=== PATIENT | male | born 1935 | race Caucasian/White ===

== ENCOUNTER → 2017-03-07 | Outpatient (CLI) | payer MEDICARE, OTHER | LOC: GMAL 11:35 | PROVIDERS: ATTEND Family Medicine | DX: D51.3 Other dietary vitamin B12 deficiency anemia (principal); R53.82 Chronic fatigue, unspecified; E55.9 Vitamin D deficiency, unspecified ==

== ENCOUNTER → 2017-03-14 | Outpatient (CLI) | payer MEDICARE, OTHER | LOC: GMAL 12:05 | PROVIDERS: ATTEND Family Medicine | DX: R53.82 Chronic fatigue, unspecified (principal); E55.9 Vitamin D deficiency, unspecified ==

== ENCOUNTER → 2017-04-16 | Outpatient (CLI) | payer MEDICARE, OTHER | LOC: GMAL 14:36 | PROVIDERS: ATTEND Family Medicine | DX: Z12.5 Encounter for screening for malignant neoplasm of prostate (principal) ==

== ENCOUNTER 2017-06-03 14:02 | Emergency (ER) | payer MEDICARE, OTHER ==
[2017-06-03 14:28] VITALS: TEMP 97.9
--- NOTE | 2017-06-03 14:42 | ED.PDOC ---
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 A few hours while in ER stated pain is almost gone. Occurred: just prior to arrival Pain - Lower Extremity: moderate: Right Thigh/Hip Method of Injury: twisted Improving Factors: nothing Worsening Factors: nothing Associated Symptoms: pain Allergies/Adverse Reactions: Allergies Morphine Allergy (Severe, Verified 03/27/15 12:27) Home Medications: Ambulatory Orders Aspirin [Aspirin Childrens] 81 mg PO DAILY 03/27/15 Atenolol [Tenormin] 25 mg PO BID 03/27/15 BuPROPion XL [Wellbutrin XL] 150 mg PO BEDTIME 03/27/15 Citalopram Hydrobromide 40 mg PO DAILY 03/27/15 Cyclobenzaprine HCl 10 mg PO BEDTIME 03/27/15 Finasteride 5 mg PO DAILY 03/27/15 Flaxseed (Linseed) [Flax Seed Oil 1000 mg] 1 cap PO DAILY 03/27/15 Furosemide [Lasix] 20 mg PO DAILY 03/27/15 Lovastatin 10 mg PO DAILY 03/27/15 Omeprazole 40 mg PO DAILY@0700 03/27/15 Potassium Chloride [Potassium Chloride ER] 8 meq PO BEDTIME 03/27/15 Terazosin [Hytrin] 5 mg PO BID 03/27/15 Vitamin A 25,000 unit PO DAILY 03/27/15 Vitamin E 100 unit PO DAILY 03/27/15 diltiaZEM HCL CD [Cardizem Cd] 120 mg PO QD 03/27/15 traZODone HCL [Desyrel] 50 mg PO BEDTIME 03/27/15 Azithromycin Tab [Zithromax Tab] 500 mg PO Q24H #3 tab 03/29/15 Ipratropium/Albuterol [Duoneb] 3 ml INH RTQID #30 vial 03/29/15 Review of Systems - Review of Systems Constitutional: States: no symptoms reported EENTM: States: no symptoms reported Respiratory: States: no symptoms reported Musculoskeletal: States: see HPI Skin: States: no symptoms reported Neurological: States: no symptoms reported Past Medical History (General) - Patient Medical History Hx Stroke: No Hx Dementia: No Hx Asthma: No Hx of COPD: No Hx Congestive Heart Failure: No Hx Hypertension: Yes Hx Diabetes: No - borderline Hx Gastroesophageal Reflux: Yes Hx Cancer: No Hx MRSA: No Surgical History: other - bilateral hip replacement - Vaccination History Hx Tetanus, Diphtheria Vaccination: - unknown Hx Influenza Vaccination: Yes Hx Pneumococcal Vaccination: Yes - Social History Hx Tobacco Use: Yes Hx Alcohol Use: No Hx Substance Use: No Hx Substance Use Treatment: No Hx Depression: No Hx Physical Abuse: No Hx Emotional Abuse: No - Activities of Daily Living Grooming Ability: Independent Eating (Feeding) Ability: Independent Toileting Ability: Independent - Female History Patient : No Family Medical History - Family History Mother Living Status: Hx Family;Other: uti's Physical Exam - Physical Exam General Appearance: Alert, Comfortable, No apparent distress Eyes, Ears, Nose, Throat: normal ENT inspection Neck: full range of motion, supple Cardiovascular/Respiratory: regular rate, rhythm, normal peripheral pulses, no JVD, normal breath sounds Back: normal inspection, no CVA tenderness, no vertebral tenderness Thigh/Hip: normal inspection, non-tender, no evidence of injury, normal ROM Leg: normal inspection, non-tender, no evidence of injury, normal ROM Knee: normal inspection, non-tender, no evidence of injury Ankle: normal inspection, non-tender, no evidence of injury Foot: normal inspection, non-tender, no evidence of injury, normal ROM Neuro/Tendon: normal sensation, normal motor functions, normal tendon functions Mental Status: alert, oriented x 3 Skin: normal color, warm/dry Progress - EKG/XRAY/CT XRAY: lumbar -no acute abnormalities noted both hip prosttheses intact Departure - Departure Clinical Impression: Pain of right hip joint Strain of right hip Qualifiers: Encounter type: initial encounter Qualified Code(s): S76.011A - Strain of muscle, fascia and tendon of right hip, initial encounter Time of Disposition: 16:38 Disposition: Discharge to Home or Self Care Departure Forms: ED Discharge - Pt. Copy, Patient Portal Self Enrollment Instructions: Muscle Strain Referrals: Carlos Dawkins III, MD [Primary Care Provider] - 1-2 Weeks Home Medications: Ambulatory Orders Aspirin [Aspirin Childrens] 81 mg PO DAILY 03/27/15 Atenolol [Tenormin] 25 mg PO BID 03/27/15 BuPROPion XL [Wellbutrin XL] 150 mg PO BEDTIME 03/27/15 Citalopram Hydrobromide 40 mg PO DAILY 03/27/15 Cyclobenzaprine HCl 10 mg PO BEDTIME 03/27/15 Finasteride 5 mg PO DAILY 03/27/15 Flaxseed (Linseed) [Flax Seed Oil 1000 mg] 1 cap PO DAILY 03/27/15 Furosemide [Lasix] 20 mg PO DAILY 03/27/15 Lovastatin 10 mg PO DAILY 03/27/15 Omeprazole 40 mg PO DAILY@0700 03/27/15 Potassium Chloride [Potassium Chloride ER] 8 meq PO BEDTIME 03/27/15 Terazosin [Hytrin] 5 mg PO BID 03/27/15 Vitamin A 25,000 unit PO DAILY 03/27/15 Vitamin E 100 unit PO DAILY 03/27/15 diltiaZEM HCL CD [Cardizem Cd] 120 mg PO QD 03/27/15 traZODone HCL [Desyrel] 50 mg PO BEDTIME 03/27/15 Azithromycin Tab [Zithromax Tab] 500 mg PO Q24H #3 tab 03/29/15 Ipratropium/Albuterol [Duoneb] 3 ml INH RTQID #30 vial 03/29/15 Additional Instructions: Return to ER as needed;May take Aleve 1-2 tablets am/pm for pain as needed Ice pack to affected area 20 minutes 3 x a day as needed until better
--- NOTE | 2017-06-03 15:49 | RAD ---
EXAM DESCRIPTION: Hip,Right 2 Views CLINICAL HISTORY: pain COMPARISON: None IMPRESSION: 2 views of the right hip show noncemented bipolar total hip arthroplasty in good positioning without complicating features. No fracture or dislocation is identified. Distal aspect of the femoral component is not seen on the AP view. Electronically signed by: Baltazar Clark MD 06/03/2017 3:48 PM CDT
--- NOTE | 2017-06-03 15:51 | RAD ---
EXAM DESCRIPTION: Pelvis CLINICAL HISTORY: pain COMPARISON: CT abdomen and pelvis dated 15 November 2014 TECHNIQUE: AP pelvis FINDINGS: Bilateral total hip arthroplasty is observed. No evidence of fracturing or loosening is detected. No pelvic injury is detected. No worrisome calcifications are detected. Mild degenerative changes are observed in the lower lumbar spine. IMPRESSION: Bilateral total hip arthroplasty is observed. Exam is otherwise unremarkable. Electronically signed by: Carlos Glover MD 06/03/2017 3:50 PM CDT
--- NOTE | 2017-06-03 15:52 | RAD ---
EXAM DESCRIPTION: Lumbar Spine 3 Views CLINICAL HISTORY: 81 years Male, pain COMPARISON: None. FINDINGS: 3 views of the lumbar spine show vertebral body heights to be maintained. Mild L4-5 and severe L5-S1 disc space narrowing with L5-S1 vacuum disc is seen. Anterior disc osteophytic ridging is seen from L4 through S1 with moderate bilateral facet hypertrophic and degenerative changes at these levels. Alignment is unremarkable. Calcifications of the abdominal aorta without aneurysmal dilatation are seen. Osseous structures are diffusely osteopenic. 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 Electronically signed by: Baltazar Clark MD 06/03/2017 3:51 PM CDT
[2017-06-03 17:15] VITALS: BP 142/86; O2SAT 97
== END 2017-06-03 16:53 | disposition home or self-care (01) ==
LOC: ER 14:02
DX: S76.011A Strain of muscle, fascia and tendon of right hip, initial encounter (principal); I10 Essential (primary) hypertension; K21.9 Gastro-esophageal reflux disease without esophagitis; Z96.643 Presence of artificial hip joint, bilateral; Z79.82 Long term (current) use of aspirin; Z79.899 Other long term (current) drug therapy; Z88.6 Allergy status to analgesic agent; X58.XXXA Exposure to other specified factors, initial encounter; Y92.9 Unspecified place or not applicable

== ENCOUNTER → 2017-07-17 | Outpatient (CLI) | payer MEDICARE, OTHER | LOC: GMAL 10:15 | PROVIDERS: ATTEND Family Medicine | DX: D51.3 Other dietary vitamin B12 deficiency anemia (principal) ==

== ENCOUNTER 2018-07-18 12:04 | Emergency (ER) | payer MEDICARE, OTHER ==
[2018-07-18] MEDS ORDERED: LIDOCAINE 1% 10 ML VIAL INJ ONE (12:17)
[2018-07-18 12:22] VITALS: TEMP 97.7; O2SAT 97
[2018-07-18] MEDS ORDERED: AMOXICILLIN & POT CLAVULANATE 875 MG TAB PO ONE (12:26)
[2018-07-18] MEDS ORDERED: TETANUS,DIPHTHERIA,PERTUSSIS 1 EA SYG IM ONE (12:26)
--- NOTE | 2018-07-18 12:55 | ED.PDOC ---
History of Present Illness - General Chief Complaint: Laceration Stated Complaint: laceration Time Seen by Provider: 07/18/18 12:26 Source: patient Exam Limitations: no limitations - History of Present Illness Initial Comments: the patient is an 82-year-old male presenting to the emergency room secondary to lacerations to his lateral dorsal right hand. He has a three- quarter inch laceration between the fourth and fifth knuckles and a 1/2 inch laceration over the hyperthenar lateral edge. He is neurovascularly intact. No evidence of fracture. Range of motion is preserved. The laceration sustained from his dog. Apparently he accidentally ran over his dog with his vehicle and when he went to pick it up, the dog bit him as the dog was in significant pain. The dog is now . No unusual behavior in the animal prior and he reports that it has had shots. he did take the dog to thevet Timing/Duration: 1 hour Severity: moderate Improving Factors: nothing Worsening Factors: nothing Associated Symptoms: denies symptoms Allergies/Adverse Reactions: Allergies Morphine Allergy (Severe, Verified 07/18/18 12:24) Home Medications: Ambulatory Orders Aspirin [Aspirin Childrens] 81 mg PO DAILY 03/27/15 Atenolol [Tenormin] 25 mg PO BID 03/27/15 BuPROPion XL [Wellbutrin XL] 150 mg PO BEDTIME 03/27/15 Citalopram Hydrobromide 40 mg PO DAILY 03/27/15 Cyclobenzaprine HCl 10 mg PO BEDTIME 03/27/15 Finasteride 5 mg PO DAILY 03/27/15 Flaxseed (Linseed) [Flax Seed Oil 1000 mg] 1 cap PO DAILY 03/27/15 Furosemide [Lasix] 20 mg PO DAILY 03/27/15 Lovastatin 10 mg PO DAILY 03/27/15 Omeprazole 40 mg PO DAILY@0700 03/27/15 Potassium Chloride [Potassium Chloride ER] 8 meq PO BEDTIME 03/27/15 Terazosin [Hytrin] 5 mg PO BID 03/27/15 Vitamin A 25,000 unit PO DAILY 03/27/15 Vitamin E 100 unit PO DAILY 03/27/15 diltiaZEM HCL CD [Cardizem Cd] 120 mg PO QD 03/27/15 traZODone HCL [Desyrel] 50 mg PO BEDTIME 03/27/15 Azithromycin Tab [Zithromax Tab] 500 mg PO Q24H #3 tab 03/29/15 Ipratropium/Albuterol [Duoneb] 3 ml INH RTQID #30 vial 03/29/15 Amoxicillin & Pot Clavulanate [Augmentin Tab] 875 mg PO BID #14 tab 07/18/18 Review of Systems - Review of Systems Constitutional: States: no symptoms reported EENTM: States: no symptoms reported Respiratory: States: no symptoms reported Cardiology: States: no symptoms reported Gastrointestinal/Abdominal: States: no symptoms reported Genitourinary: States: no symptoms reported Musculoskeletal: States: no symptoms reported Skin: States: see HPI Neurological: States: no symptoms reported Endocrine: States: no symptoms reported All other Systems: No Change from Baseline Past Medical History (General) - Patient Medical History Hx Stroke: No Hx Dementia: No Hx Asthma: No Hx of COPD: No Hx Congestive Heart Failure: No Hx Hypertension: Yes Hx Diabetes: No - borderline Hx Gastroesophageal Reflux: Yes Hx Cancer: No Hx MRSA: No - Vaccination History Hx Tetanus, Diphtheria Vaccination: - unknown Hx Influenza Vaccination: Yes Hx Pneumococcal Vaccination: Yes - Social History Hx Tobacco Use: Yes Hx Alcohol Use: No Hx Substance Use: No Hx Substance Use Treatment: No Hx Depression: No Hx Physical Abuse: No Hx Emotional Abuse: No - Female History Patient : No Family Medical History - Family History Mother Living Status: Hx Family;Other: uti's Physical Exam - Physical Exam General Appearance: Alert, No apparent distress Eye Exam: bilateral normal Ears, Nose, Throat: hearing grossly normal Respiratory: no respiratory distress, no accessory muscle use Cardiovascular/Chest: normal peripheral pulses, no edema, other - regular rate Peripheral Pulses: radial,right: 2+, radial,left: 2+ Rectal Exam: deferred Back Exam: no CVA tenderness Extremity: normal range of motion, no calf tenderness, normal capillary refill Neurologic: crank hand II-XII nml as tested, alert, normal mood/affect, oriented x 3 Skin Exam: normal color - lacerations as per history of present illness Comments: Vital Signs - 8 hr 07/18/18 12:10 Temperature 97.7 F Pulse Rate [ 65 pulse ox] Respiratory 18 Rate Blood Pressure 152/88 [Left Arm] O2 Sat by Pulse 97 Oximetry Progress - Progress Progress: 07/18/18 12:56 the patient is an 82-year-old male presenting to the emergency room secondary tolacerations to his right hand. The wound was irrigated copiously with water. He was dosed with Augmentin here and will be continued on that for 7 days. He did receive a tetanus shot. After risk and benefits of repair were explained, the patient did agree to proceed. Lidocaine without epinephrine 4 cc were used for local anesthetic. A total of 6 sutures were used to close both wounds. 4-0 Ethilon was used. Sutures need to come out in 10 days. Monitor for any evidence of infection. ER warnings were given. Departure - Departure Clinical Impression: Accidental laceration Disposition: Discharge to Home or Self Care Condition: Fair Departure Forms: ED Discharge - Pt. Copy, Patient Portal Self Enrollment Instructions: DI for Laceration Repair, DI for Laceration Repair -- Simple Diet: regular diet Activity: increase activity as tolerated Referrals: Carlos Dawkins III, MD [Primary Care Provider] - 1-2 Weeks Prescriptions: Amoxicillin & Pot Clavulanate [Augmentin Tab] 875 mg PO BID #14 tab Home Medications: Ambulatory Orders Aspirin [Aspirin Childrens] 81 mg PO DAILY 03/27/15 Atenolol [Tenormin] 25 mg PO BID 03/27/15 BuPROPion XL [Wellbutrin XL] 150 mg PO BEDTIME 03/27/15 Citalopram Hydrobromide 40 mg PO DAILY 03/27/15 Cyclobenzaprine HCl 10 mg PO BEDTIME 03/27/15 Finasteride 5 mg PO DAILY 03/27/15 Flaxseed (Linseed) [Flax Seed Oil 1000 mg] 1 cap PO DAILY 03/27/15 Furosemide [Lasix] 20 mg PO DAILY 03/27/15 Lovastatin 10 mg PO DAILY 03/27/15 Omeprazole 40 mg PO DAILY@0700 03/27/15 Potassium Chloride [Potassium Chloride ER] 8 meq PO BEDTIME 03/27/15 Terazosin [Hytrin] 5 mg PO BID 03/27/15 Vitamin A 25,000 unit PO DAILY 03/27/15 Vitamin E 100 unit PO DAILY 03/27/15 diltiaZEM HCL CD [Cardizem Cd] 120 mg PO QD 03/27/15 traZODone HCL [Desyrel] 50 mg PO BEDTIME 03/27/15 Azithromycin Tab [Zithromax Tab] 500 mg PO Q24H #3 tab 03/29/15 Ipratropium/Albuterol [Duoneb] 3 ml INH RTQID #30 vial 03/29/15 Amoxicillin & Pot Clavulanate [Augmentin Tab] 875 mg PO BID #14 tab 07/18/18 Additional Instructions: the patient is an 82-year-old male presenting to the emergency room secondary tolacerations to his right hand. The wound was irrigated copiously with water. He was dosed with Augmentin here and will be continued on that for 7 days. He did receive a tetanus shot. After risk and benefits of repair were explained, the patient did agree to proceed. Lidocaine without epinephrine 4 cc were used for local anesthetic. A total of 6 sutures were used to close both wounds. 4-0 Ethilon was used. Sutures need to come out in 10 days. Monitor for any evidence of infection. ER warnings were given.
[2018-07-18 14:19] VITALS: BP 174/96
== END 2018-07-18 13:10 | disposition home or self-care (01) ==
LOC: ER 12:04
DX: S61.451A Open bite of right hand, initial encounter (principal); I10 Essential (primary) hypertension; R73.03 Prediabetes; K21.9 Gastro-esophageal reflux disease without esophagitis; Z87.891 Personal history of nicotine dependence; Z79.899 Other long term (current) drug therapy; Z79.82 Long term (current) use of aspirin; Z88.5 Allergy status to narcotic agent; W54.0XXA Bitten by dog, initial encounter; Y92.9 Unspecified place or not applicable

== ENCOUNTER → 2018-12-02 | Outpatient (CLI) | payer MEDICARE, OTHER | LOC: GMAL 12:11 | PROVIDERS: ATTEND Family Medicine | DX: D51.3 Other dietary vitamin B12 deficiency anemia (principal); R53.82 Chronic fatigue, unspecified; E55.9 Vitamin D deficiency, unspecified; E78.2 Mixed hyperlipidemia; I10 Essential (primary) hypertension ==

== ENCOUNTER → 2019-11-30 | Outpatient (CLI) | payer MEDICARE, OTHER | LOC: GMAL 10:46 | PROVIDERS: ATTEND Family Medicine | DX: D51.3 Other dietary vitamin B12 deficiency anemia (principal); R53.82 Chronic fatigue, unspecified; E55.9 Vitamin D deficiency, unspecified; I10 Essential (primary) hypertension; E78.2 Mixed hyperlipidemia ==

== ENCOUNTER 2020-03-15 18:06 | Emergency (ER) | payer MEDICARE, OTHER ==
[2020-03-15] MEDS ORDERED: HYDROmorphone HCL INJ 2 MG/ML VIAL IM ONE (18:45)
--- NOTE | 2020-03-15 19:38 | RAD ---
EXAM DESCRIPTION: Femur,Right CLINICAL HISTORY: 84 years, Male, fall wiht suspected dislocation COMPARISON: None. FINDINGS: 2 X-ray views of the Right femur were performed. There is status post noncemented total right hip hypoplastic with at this location of the femoral prosthesis in relation to the acetabular prosthesis. There is foreshortening of the distal fragment site. There is minimal early vascular opacification of the femoral vessels There are no retained opaque foreign bodies. Grossly the knee joint demonstrate to be within normal limits. IMPRESSION: FEMORAL PROSTHESIS DISLOCATION OF THE TOTAL HIP ARTHROPLASTY. Electronically signed by: Carlos Sanchez MD 03/15/2020 7:37 PM [facility]
--- NOTE | 2020-03-15 19:41 | RAD ---
EXAM DESCRIPTION: Pelvis 03/15/2020 7:40 PM RESOURCING CONSULTANT CLINICAL HISTORY: 84 years, Male, fall wiht suspected dislocation COMPARISON: 06/03/2017 FINDINGS: 3 views of the (frontal view of the pelvis, frontal view of the right hip and frogleg view of the right hip) were obtained. There is mild diffuse bony osteopenia. There is status post total right hip arthroplasty with a posterior dislocation of the femoral component of the right hip arthroplasty. No definitive areas of acute bony injuries. The pelvic brim is intact. There is status post total left hip are the plasty. No gross soft tissue abnormality is identified. There are no gross intraosseous lesions. No periosteal reaction were seen. The pelvic brim is intact. Visualized gas pattern is nondiagnostic. IMPRESSION: DISLOCATION FEMORAL COMPONENT OF A TOTAL RIGHT HIP ARTHROPLASTY. STATUS POST TOTAL LEFT HIP ARTHROPLASTY. Electronically signed by: Carlos Sanchez MD 03/15/2020 7:40 PM RESOURCING CONSULTANT
--- NOTE | 2020-03-15 19:41 | RAD ---
EXAM DESCRIPTION: Hip,Right 2 Views 03/15/2020 7:37 PM [employer] [employer] CLINICAL HISTORY: 84 years, Male, fall wiht suspected dislocation COMPARISON: 06/03/2017 FINDINGS: 3 views of the (frontal view of the pelvis, frontal view of the right hip and frogleg view of the right hip) were obtained. There is mild diffuse bony osteopenia. There is status post total right hip arthroplasty with a posterior dislocation of the femoral component of the right hip arthroplasty. No definitive areas of acute bony injuries. The pelvic brim is intact. There is status post total left hip are the plasty. No gross soft tissue abnormality is identified. There are no gross intraosseous lesions. No periosteal reaction were seen. The pelvic brim is intact. Visualized gas pattern is nondiagnostic. IMPRESSION: DISLOCATION FEMORAL COMPONENT OF A TOTAL RIGHT HIP ARTHROPLASTY. STATUS POST TOTAL LEFT HIP ARTHROPLASTY. Electronically signed by: Carlos Sanchez MD 03/15/2020 7:39 PM [employer]
[2020-03-15] MEDS ORDERED: HYDROmorphone HCL INJ 2 MG/ML VIAL IV ONE (19:54)
[2020-03-15] MEDS ORDERED: ETOMIDATE INJECTION 2 MG/ML 20ML VIAL IV ONE (20:48)
[2020-03-15] MEDS ORDERED: SODIUM CHLORIDE 0.9% 1000ML 1,000 ML ONE (20:56)
--- NOTE | 2020-03-15 21:14 | ED.PDOC ---
History of Present Illness - General Chief Complaint: Lower Extremity Injury Stated Complaint: right hip pain Time Seen by Provider: 03/15/20 18:08 Source: patient Exam Limitations: no limitations - History of Present Illness Initial Comments: The patient is a 84-year-old male presented emergency room secondary to right hip pain. The patient tripped and fell down into a pit.. The patient has had a history of previous dislocations of the right hip. He has also had the right hip replaced. No other significant injuries. He is pleasant and cooperative. Timing/Duration: 1/2 hour Severity: severe Improving Factors: immobilization Worsening Factors: movement Associated Symptoms: denies symptoms Allergies/Adverse Reactions: Allergies Morphine Allergy (Severe, Verified 07/18/18 12:24) Home Medications: Ambulatory Orders Aspirin [Aspirin Childrens] 81 mg PO DAILY 03/27/15 Atenolol [Tenormin] 25 mg PO BID 03/27/15 BuPROPion XL [Wellbutrin XL] 150 mg PO BEDTIME 03/27/15 Citalopram Hydrobromide 40 mg PO DAILY 03/27/15 Cyclobenzaprine HCl 10 mg PO BEDTIME 03/27/15 Finasteride 5 mg PO DAILY 03/27/15 Flaxseed (Linseed) [Flax Seed Oil 1000 mg] 1 cap PO DAILY 03/27/15 Furosemide [Lasix] 20 mg PO DAILY 03/27/15 Lovastatin 10 mg PO DAILY 03/27/15 Omeprazole 40 mg PO DAILY@0700 03/27/15 Potassium Chloride [Potassium Chloride ER] 8 meq PO BEDTIME 03/27/15 Terazosin [Hytrin] 5 mg PO BID 03/27/15 Vitamin A 25,000 unit PO DAILY 03/27/15 Vitamin E 100 unit PO DAILY 03/27/15 diltiaZEM HCL CD [Cardizem Cd] 120 mg PO QD 03/27/15 traZODone HCL [Desyrel] 50 mg PO BEDTIME 03/27/15 Azithromycin Tab [Zithromax Tab] 500 mg PO Q24H #3 tab 03/29/15 Ipratropium/Albuterol [Duoneb] 3 ml INH RTQID #30 vial 03/29/15 Amoxicillin & Pot Clavulanate [Augmentin Tab] 875 mg PO BID #14 tab 07/18/18 Review of Systems - Review of Systems Constitutional: States: no symptoms reported EENTM: States: no symptoms reported Respiratory: States: no symptoms reported Cardiology: States: no symptoms reported Gastrointestinal/Abdominal: States: no symptoms reported Genitourinary: States: no symptoms reported Musculoskeletal: States: see HPI Skin: States: no symptoms reported Neurological: States: no symptoms reported Endocrine: States: no symptoms reported All other Systems: No Change from Baseline Past Medical History (General) - Patient Medical History Hx Stroke: No Hx Dementia: No Hx Asthma: No Hx of COPD: No Hx Congestive Heart Failure: No Hx Hypertension: Yes Hx Diabetes: No - borderline Hx Gastroesophageal Reflux: Yes Hx Cancer: No Hx MRSA: No Surgical History: other - Vaccination History Hx Tetanus, Diphtheria Vaccination: - unknown Hx Influenza Vaccination: Yes Hx Pneumococcal Vaccination: Yes - Social History Hx Tobacco Use: Yes Hx Alcohol Use: No Hx Substance Use: No Hx Substance Use Treatment: No Hx Depression: No Hx Physical Abuse: No Hx Emotional Abuse: No - Female History Patient : No Family Medical History - Family History Mother Living Status: Hx Family;Other: uti's Physical Exam - Physical Exam General Appearance: Alert, Obvious distress Eye Exam: bilateral normal Ears, Nose, Throat: hearing grossly normal, normal pharynx Neck: non-tender, supple Respiratory: no respiratory distress, no accessory muscle use Cardiovascular/Chest: normal peripheral pulses, no edema, other - Regular rate Peripheral Pulses: radial,right: 2+, radial,left: 2+ Gastrointestinal/Abdominal: non tender, soft, other - Pelvis is stable Back Exam: no CVA tenderness, no vertebral tenderness Extremity: no pedal edema, no calf tenderness, normal capillary refill, other - Mild shortening of the right leg with internal rotation. 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 He has dislocated this before. Due to oral intake, reduction had to be delayed several hours. Patient tolerated the reduction under moderate sedation well. X-rays confirm adequate reduction. He is to ambulate carefully. Motrin or Aleve can be used for discomfort. Topical heat may prove beneficial. ER warnings are given. Keep routine follow-up with primary care doctor. martha duncan [phone] - Results/Orders Results/Orders: Initial x-rays of the pelvis, right hip and femur show the posterior superior dislocation of the right hip. Departure - Departure Clinical Impression: Recurrent dislocation, right hip Disposition: Discharge to Home or Self Care Condition: Fair Departure Forms: ED Discharge - Pt. Copy, Patient Portal Self Enrollment Instructions: DI for Leg Pain, Hip Dislocation (DC) Diet: regular diet Activity: increase activity as tolerated Referrals: Carlos Dawkins III, MD [Primary Care Provider] - 1-2 Weeks Home Medications: Ambulatory Orders Aspirin [Aspirin Childrens] 81 mg PO DAILY 03/27/15 Atenolol [Tenormin] 25 mg PO BID 03/27/15 BuPROPion XL [Wellbutrin XL] 150 mg PO BEDTIME 03/27/15 Citalopram Hydrobromide 40 mg PO DAILY 03/27/15 Cyclobenzaprine HCl 10 mg PO BEDTIME 03/27/15 Finasteride 5 mg PO DAILY 03/27/15 Flaxseed (Linseed) [Flax Seed Oil 1000 mg] 1 cap PO DAILY 03/27/15 Furosemide [Lasix] 20 mg PO DAILY 03/27/15 Lovastatin 10 mg PO DAILY 03/27/15 Omeprazole 40 mg PO DAILY@0700 03/27/15 Potassium Chloride [Potassium Chloride ER] 8 meq PO BEDTIME 03/27/15 Terazosin [Hytrin] 5 mg PO BID 03/27/15 Vitamin A 25,000 unit PO DAILY 03/27/15 Vitamin E 100 unit PO DAILY 03/27/15 diltiaZEM HCL CD [Cardizem Cd] 120 mg PO QD 03/27/15 traZODone HCL [Desyrel] 50 mg PO BEDTIME 03/27/15 Azithromycin Tab [Zithromax Tab] 500 mg PO Q24H #3 tab 03/29/15 Ipratropium/Albuterol [Duoneb] 3 ml INH RTQID #30 vial 03/29/15 Amoxicillin & Pot Clavulanate [Augmentin Tab] 875 mg PO BID #14 tab 06/08/19 Additional Instructions: The patient is a 84-year-old male presented emergency room secondary to having fallen and dislocated his right hip. He has dislocated this before. Due to oral intake, reduction had to be delayed several hours. Patient tolerated the reduction under moderate sedation well. X-rays confirm adequate reduction. He is to ambulate carefully. Motrin or Aleve can be used for discomfort. Topical heat may prove beneficial. ER warnings are given. Keep routine follow-up with primary care doctor.
--- NOTE | 2020-03-15 22:00 | RAD ---
EXAM: XR Right Hip 2 Views CLINICAL HISTORY: reduction TECHNIQUE: AP and crosstable lateral views right hip obtained at 9:25 PM COMPARISON: 6:44 PM the same day FINDINGS: Limitations: None. Bones/joints: Cranial dislocation of the right femoral component has been reduced. 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 There is no fracture. Soft tissues: No abnormality noted. Gastrointestinal tract: No abnormality noted. 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 No fracture. Electronically signed by: Corazon Wetzel MD 03/15/2020 9:59 PM [facility]
[2020-03-15 22:50] VITALS: BP 170/89; TEMP 97.2; O2SAT 94
== END 2020-03-15 23:00 | disposition home or self-care (01) ==
LOC: ER 18:06
DX: T84.020A Dislocation of internal right hip prosthesis, initial encounter (principal); I10 Essential (primary) hypertension; K21.9 Gastro-esophageal reflux disease without esophagitis; R73.03 Prediabetes; W17.2XXA Fall into hole, initial encounter; Y92.9 Unspecified place or not applicable; Z87.891 Personal history of nicotine dependence; Z79.899 Other long term (current) drug therapy; Z79.82 Long term (current) use of aspirin; Z88.5 Allergy status to narcotic agent
CPT/HCPCS: 72170; 73502; 73551; J1170; J7030